=== PATIENT | male | born 1980 | race Caucasian/White ===

== ENCOUNTER 2018-08-20 16:14 | Emergency (ER) | payer SELFPAY ==
[~2018-08-20] VITALS: Ht 182.9 cm; Wt 73.0 kg
[2018-08-20 17:53] LABS: BASOPHILS % 0.4 % (0.0-2.0); EOSINOPHILS % 1.4 % (0.0-5.0); HEMOGLOBIN. 14.5 g/dL (14.0-18.0); LYMPHOCYTES % 27.2 % (20.0-50.0); MEAN CORPUSCULAR HEMOGLOBIN 31.4 pg (28.0-32.0); MEAN CORPUSCULAR VOLUME 95.3 fL (80.0-94.0); MEAN PLATELET VOLUME 7.8 fl (7.4-10.4); MONOCYTES % 8.3 % (2.0-8.0); NEUTROPHILS % 62.7 % (40.0-76.0); PLATELET 233 x1000/uL (130-400); RED BLOOD CELL COUNT 4.62 mill/uL (4.7-6.1)
[2018-08-20 18:00] LABS: CHLORIDE 105 mEq/L (98-107)
[2018-08-20 18:09] LABS: ETHANOL BLOOD 13 mg/dL
[2018-08-20] MEDS ORDERED: NALOXONE HCL 1 MG/ML 2ML VIAL ONE (18:51)
[2018-08-20] MEDS ORDERED: NALOXONE HCL 0.4 MG/ML 1ML VIAL IV ONE ×2 (19:30→20:45)
[2018-08-20] MEDS ORDERED: ENOXAPARIN 40MG/0.4ML SYR SUBCUT ONE (19:30)
[2018-08-20 20:19] LABS: HEPATITIS B SURFACE ANTIGEN NEGATIVE
[2018-08-20 20:47] LABS: HEPATITIS B CORE AB IGM NEGATIVE
[2018-08-20 20:49] LABS: HEPATITIS A AB IGM NEGATIVE (NEGATIVE)
[2018-08-20] MEDS ORDERED: ONDANSETRON HCL 4MG/2ML INJ IV PRN (21:15)
[2018-08-20] MEDS ORDERED: ACETAMINOPHEN 325MG TABLET PO PRN (21:15)
[2018-08-20] MEDS ORDERED: CLONIDINE 0.1MG TABLET PO PRN (21:15)
[2018-08-20] MEDS ORDERED: LORAZEPAM 2MG/ML CPJ IV PRN (21:15)
[2018-08-20] MEDS ORDERED: MAGNESIUM/ALUMINUM HYDROXIDE/SIMETHICONE 30ML UDC PO PRN (21:15)
[2018-08-20] MEDS ORDERED: DILTIAZEM HCL 60MG TABLET PO NR (21:30)
[2018-08-21] MEDS ORDERED: DILTIAZEM HCL 60MG TABLET PO NR (05:00)
[2018-08-21] MEDS ORDERED: SODIUM CHLORIDE 0.9% INJ 3ML FLUSH IVF SCH (06:00)
[2018-08-21 06:34] LABS: CLARITY URINE CLEAR (CLEAR); COLOR URINE YELLOW (YELLOW); KETONES URINE NEGATIVE (NEGATIVE); LEUKOCYTE ESTERASE URINE NEGATIVE (NEGATIVE); NITRITE URINE NEGATIVE (NEGATIVE); OCCULT BLOOD URINE NEGATIVE (NEGATIVE); PH URINE 5.5 (4.5-8.0); PROTEIN URINE 1+ (NEGATIVE); SPECIFIC GRAVITY URINE 1.019 (1.005-1.030); UROBILINOGEN URINE 0.2 E.U./dL (0.2-1.0)
[2018-08-21 06:53] LABS: *AMPHETAMINES SCREEN URINE PRESUMTIVE POSITIVE (NEGATIVE); *BARBITURATES SCREEN URINE NEGATIVE (NEGATIVE); *BENZODIAZEPINES SCREEN URINE NEGATIVE (NEGATIVE); *COCAINE SCREEN URINE PRESUMTIVE POSITIVE (NEGATIVE)
[2018-08-21 06:54] LABS: CANNABINOID URINE SCREEN PRESUMTIVE POSITIVE (NEGATIVE); METHADONE URINE SCREEN NEGATIVE (NEGATIVE); OPIATES URINE SCREEN NEGATIVE (NEGATIVE); PHENCYCLIDINE URINE SCREEN NEGATIVE (NEGATIVE)
[2018-08-21] MEDS ORDERED: ASPIRIN 81MG EC TABLET PO SCH (09:00)
[2018-08-21] MEDS ORDERED: DILTIAZEM HCL 60MG TABLET PO SCH (14:00)
[2018-08-21 15:18] VITALS: BP 117/78
[2018-08-22] MEDS ORDERED: ASPIRIN 81MG EC TABLET PO SCH (09:00)
[2018-08-22 13:10] LABS: HIV SCREEN 4G Non Reactive (Non Reactive)
== END 2018-08-21 16:21 | disposition home or self-care (01) ==
LOC: ER 16:14 → EDBD 16:14 → EDBEDREQTM 08-21 05:34 → EDBEDREQSVC 08-21 05:34 → EDBEDREQDT 08-21 05:34 → EDBEDREQ 08-21 05:37 → CANBEDREQ 08-21 15:12 → ER 08-21 16:21
DX: F11.10 Opioid abuse, uncomplicated (principal)
CPT/HCPCS: 36415; 71045; 80053; 80305; 80307; 81003; 82962; 83735; 84484; 85025; 87389; 93005; 96372; 99285; G0482; J1650; J2310; 86705; 86709; 86803; 87340

== ENCOUNTER 2018-10-19 21:45 | Inpatient (IN) | payer MEDICAID, OTHER ==
[~2018-10-19] VITALS: Ht 175.3 cm; Wt 74.8 kg
[2018-10-19] MEDS ORDERED: KETOROLAC 60MG/2ML VIAL IM ONE (23:00)
[2018-10-19] MEDS ORDERED: SODIUM CHLORIDE 0.9% 1,000 ML IV ONE (23:44)
[2018-10-19] MEDS ORDERED: FENTANYL CITRATE/PF 50MCG/ML 2ML VIAL IV ONE (23:45)
[2018-10-20 00:44] LABS: BASOPHILS % 0.4 % (0.0-2.0); EOSINOPHILS % 0.6 % (0.0-5.0); HEMATOCRIT. 40.2 % (42.0-52.0); HEMOGLOBIN. 13.7 g/dL (14.0-18.0); LYMPHOCYTES % 13.6 % (20.0-50.0); MEAN CORPUSCULAR HEMOGLOBIN 32.5 pg (28.0-32.0); MEAN CORPUSCULAR VOLUME 95.7 fL (80.0-94.0); MEAN PLATELET VOLUME 8.1 fl (7.4-10.4); MONOCYTES % 7.4 % (2.0-8.0); PLATELET 226 x1000/uL (130-400); RED CELL DISTRIBUTION WIDTH 13.3 % (11.6-14.6)
[2018-10-20 00:46] LABS: CHLORIDE 103 mEq/L (98-107)
[2018-10-20 01:05] LABS: PROTHROMBIN TIME 9.6 sec (9.1-11.1)
[2018-10-20 04:00] VITALS: BP 113/72
[2018-10-20 05:00] VITALS: BP 113/77
[2018-10-20] MEDS ORDERED: ONDANSETRON HCL 4MG/2ML INJ IV PRN ×2 (05:30→09:45)
[2018-10-20] MEDS: HYDROMORPHONE HCL/PF 2MG/ML CPJ IV PRN ×3 (06:20→20:42)
[2018-10-20] MEDS: DEXT 5%/0.9% NACL 1,000 ML IV SCH ×3 (06:21→22:52)
[2018-10-20 08:00] VITALS: BP 112/57
[2018-10-20] MEDS: ENOXAPARIN 40MG/0.4ML SYR SUBCUT SCH ×2 (08:34→18:23)
[2018-10-20] MEDS ORDERED: CLONIDINE 0.1MG TABLET PO PRN (09:45)
[2018-10-20] MEDS ORDERED: ENOXAPARIN 40MG/0.4ML SYR SUBCUT SCH (09:45)
[2018-10-20] MEDS ORDERED: LORAZEPAM 2MG/ML CPJ IV PRN (09:45)
[2018-10-20 12:00] VITALS: BP 108/68
[2018-10-20 12:50] LABS: BASOPHILS % 0.4 % (0.0-2.0); EOSINOPHILS % 1.4 % (0.0-5.0); HEMATOCRIT. 39.4 % (42.0-52.0); HEMOGLOBIN. 13.3 g/dL (14.0-18.0); LYMPHOCYTES % 23.9 % (20.0-50.0); MEAN CORPUSCULAR HEMOGLOBIN 32.7 pg (28.0-32.0); MEAN CORPUSCULAR VOLUME 96.8 fL (80.0-94.0); MEAN PLATELET VOLUME 7.9 fl (7.4-10.4); MONOCYTES % 11.8 % (2.0-8.0); NEUTROPHILS % 62.5 % (40.0-76.0); PLATELET 230 x1000/uL (130-400); RED BLOOD CELL COUNT 4.07 mill/uL (4.7-6.1); RED CELL DISTRIBUTION WIDTH 13.6 % (11.6-14.6)
[2018-10-20 12:59] LABS: CHLORIDE 108 mEq/L (98-107)
[2018-10-20 15:30] LABS: CLARITY URINE CLEAR (CLEAR); COLOR URINE YELLOW (YELLOW); KETONES URINE 1+ (NEGATIVE); LEUKOCYTE ESTERASE URINE NEGATIVE (NEGATIVE); NITRITE URINE NEGATIVE (NEGATIVE); OCCULT BLOOD URINE NEGATIVE (NEGATIVE); PROTEIN URINE NEGATIVE (NEGATIVE); SPECIFIC GRAVITY URINE 1.019 (1.005-1.030); UROBILINOGEN URINE 0.2 E.U./dL (0.2-1.0)
[2018-10-20 15:42] LABS: *AMPHETAMINES SCREEN URINE PRESUMTIVE POSITIVE (NEGATIVE); *BARBITURATES SCREEN URINE NEGATIVE (NEGATIVE); *BENZODIAZEPINES SCREEN URINE NEGATIVE (NEGATIVE); *COCAINE SCREEN URINE PRESUMTIVE POSITIVE (NEGATIVE); CANNABINOID URINE SCREEN PRESUMTIVE POSITIVE (NEGATIVE); PHENCYCLIDINE URINE SCREEN NEGATIVE (NEGATIVE)
[2018-10-20 15:43] LABS: METHADONE URINE SCREEN NEGATIVE (NEGATIVE); OPIATES URINE SCREEN PRESUMTIVE POSITIVE (NEGATIVE)
[2018-10-20 16:00] VITALS: BP 102/66
[2018-10-20 20:00] VITALS: BP 127/73
[2018-10-20 21:36] LABS: HEPATITIS B SURFACE ANTIGEN NEGATIVE
[2018-10-20 22:06] LABS: HEPATITIS A AB IGM NEGATIVE (NEGATIVE)
[2018-10-21] VITALS: BP 130/70
[2018-10-21] MEDS: HYDROMORPHONE HCL/PF 2MG/ML CPJ IV PRN ×6 (03:10→21:38)
[2018-10-21 04:00] VITALS: BP 120/65
[2018-10-21 05:47] LABS: BASOPHILS % 0.3 % (0.0-2.0); EOSINOPHILS % 1.4 % (0.0-5.0); HEMATOCRIT. 40.8 % (42.0-52.0); HEMOGLOBIN. 13.7 g/dL (14.0-18.0); LYMPHOCYTES % 16.1 % (20.0-50.0); MEAN CORPUSCULAR HEMOGLOBIN 32.8 pg (28.0-32.0); MEAN CORPUSCULAR VOLUME 97.3 fL (80.0-94.0); MEAN PLATELET VOLUME 7.7 fl (7.4-10.4); MONOCYTES % 9.2 % (2.0-8.0); PLATELET 213 x1000/uL (130-400); RED BLOOD CELL COUNT 4.19 mill/uL (4.7-6.1); RED CELL DISTRIBUTION WIDTH 13.4 % (11.6-14.6)
[2018-10-21 05:51] LABS: CHLORIDE 105 mEq/L (98-107)
[2018-10-21 08:00] VITALS: BP 125/78
[2018-10-21] MEDS: ENOXAPARIN 40MG/0.4ML SYR SUBCUT SCH (08:40)
[2018-10-21] MEDS: DEXT 5%/0.9% NACL 1,000 ML IV SCH ×2 (11:18→21:32)
[2018-10-21 12:00] VITALS: BP 131/78
[2018-10-21 16:00] VITALS: BP 128/78
[2018-10-21 20:47] VITALS: BP 125/78
[2018-10-22] MEDS ORDERED: CEFTRIAXONE 1 G PREMIX 50 ML IV SCH (00:15)
[2018-10-22] MEDS: ACETAMINOPHEN 325MG TABLET PO PRN ×2 (00:23→20:40)
[2018-10-22 00:41] VITALS: BP 119/76
[2018-10-22] MEDS: CEFTRIAXONE 1 G PREMIX 50 ML IV SCH (02:21)
[2018-10-22] MEDS: HYDROMORPHONE HCL/PF 2MG/ML CPJ IV PRN ×3 (02:31→11:08)
[2018-10-22 04:00] VITALS: BP 117/72
[2018-10-22 07:29] LABS: HEMATOCRIT. 41.7 % (42.0-52.0); HEMOGLOBIN. 14.1 g/dL (14.0-18.0); MEAN CORPUSCULAR HEMOGLOBIN 32.9 pg (28.0-32.0); MEAN CORPUSCULAR VOLUME 97.7 fL (80.0-94.0); MEAN PLATELET VOLUME 8.2 fl (7.4-10.4); PLATELET 237 x1000/uL (130-400); RED BLOOD CELL COUNT 4.27 mill/uL (4.7-6.1); RED CELL DISTRIBUTION WIDTH 13.4 % (11.6-14.6)
[2018-10-22] MEDS: DEXT 5%/0.9% NACL 1,000 ML IV SCH ×2 (07:30→20:24)
[2018-10-22] MEDS ORDERED: EPINEPHRINE 1:1000 1 MG/ML AMP ONE (07:46)
[2018-10-22] MEDS ORDERED: BACITRACIN 15GM TUBE TOP ONE (07:47)
[2018-10-22] MEDS ORDERED: BUPIVACAINE HCL/PF 0.25% (2.5MG/ML) 10ML ONE (07:47)
[2018-10-22] MEDS ORDERED: MORPHINE SULFATE 10 MG/ML CPJ ONE (07:47)
[2018-10-22] MEDS ORDERED: KETOROLAC 30MG/ML VIAL ONE (07:47)
[2018-10-22] MEDS ORDERED: ROPIVACAINE HCL 10MG/ML 20 ML VIAL EPI ONE ×4 (07:48→08:45)
[2018-10-22] MEDS ORDERED: BACITRACIN 50,000 UNITS/VIAL ONE (07:48)
[2018-10-22] MEDS ORDERED: VANCOMYCIN HCL 500 MG/VIAL ONE (07:48)
[2018-10-22] MEDS ORDERED: NORMAL SALINE 0.9% 10 ML SYR ONE (07:48)
[2018-10-22] MEDS ORDERED: FENTANYL CITRATE/PF 50MCG/ML 2ML VIAL ONE ×2 (07:58→10:17)
[2018-10-22] MEDS ORDERED: PROPOFOL 200MG/20ML VIAL IV ONE (07:59)
[2018-10-22] MEDS ORDERED: LIDOCAINE HCL 1% 20ML VIAL (Pyxis) INJ ONE (07:59)
[2018-10-22] MEDS ORDERED: CEFAZOLIN SODIUM 1000MG/VIAL ONE (07:59)
[2018-10-22] MEDS ORDERED: MIDAZOLAM HCL 2 MG/2 ML VIAL ONE (07:59)
[2018-10-22] MEDS ORDERED: SODIUM CHLORIDE 0.9% 10ML VIAL ONE (07:59)
[2018-10-22 08:07] LABS: *AMPHETAMINES SCREEN URINE PRESUMTIVE POSITIVE (NEGATIVE); *BARBITURATES SCREEN URINE NEGATIVE (NEGATIVE); CANNABINOID URINE SCREEN PRESUMTIVE POSITIVE (NEGATIVE); OPIATES URINE SCREEN PRESUMTIVE POSITIVE (NEGATIVE); PHENCYCLIDINE URINE SCREEN NEGATIVE (NEGATIVE)
[2018-10-22 08:08] LABS: *BENZODIAZEPINES SCREEN URINE NEGATIVE (NEGATIVE); *COCAINE SCREEN URINE NEGATIVE (NEGATIVE); METHADONE URINE SCREEN NEGATIVE (NEGATIVE)
[2018-10-22] MEDS ORDERED: ROCURONIUM BROMIDE 10MG/ML VIAL 5ML IV ONE (08:10)
[2018-10-22] MEDS ORDERED: TRANEXAMIC ACID 1,000 MG/10 ML IV ONE (08:15)
[2018-10-22] MEDS ORDERED: TRANEXAMIC ACID 1,000 MG in SODIUM CHLORIDE 0.9% 100 ML IV NR (08:30)
[2018-10-22] MEDS ORDERED: METOCLOPRAMIDE HCL 10MG/2ML VIAL ONE (08:51)
[2018-10-22] MEDS ORDERED: ONDANSETRON HCL 4MG/2ML INJ ONE (08:51)
[2018-10-22] MEDS: ENOXAPARIN 40MG/0.4ML SYR SUBCUT SCH (09:00)
[2018-10-22] MEDS ORDERED: SUCCINYLCHOLINE CHLORIDE 200MG/10ML IV ONE (09:19)
[2018-10-22] MEDS ORDERED: KETOROLAC 30MG/ML VIAL IV PRN (10:30)
[2018-10-22 10:55] LABS: CHLORIDE 103 mEq/L (98-107)
[2018-10-22] MEDS ORDERED: HYDROMORPHONE PCA 10MG/50ML IV PRN (11:02)
[2018-10-22] MEDS ORDERED: NALOXONE INJ IV PRN (11:15)
[2018-10-22 11:21] LABS: PHOSPHORUS 3.5 mg/dL (2.5-4.9)
[2018-10-22 11:33] LABS: PLATELET ESTIMATE NORMAL
[2018-10-22 12:00] VITALS: BP 115/69
[2018-10-22] MEDS: CEFAZOLIN 1000MG PREMIX 50 ML IV SCH ×2 (16:48→22:07)
[2018-10-22 16:52] VITALS: BP 115/68
[2018-10-22] MEDS: ASPIRIN 325MG EC TABLET PO SCH (17:28)
[2018-10-22 20:00] VITALS: BP 115/54
[2018-10-22] MEDS: MUPIROCIN 2% OINT 22GM NS SCH (20:21)
[2018-10-23] VITALS: BP 119/71
[2018-10-23] MEDS: CEFTRIAXONE 1 G PREMIX 50 ML IV SCH (01:06)
[2018-10-23 04:00] VITALS: BP 155/98
[2018-10-23 06:09] LABS: BASOPHILS % 0.3 % (0.0-2.0); EOSINOPHILS % 0.2 % (0.0-5.0); HEMOGLOBIN. 13.1 g/dL (14.0-18.0); LYMPHOCYTES % 9.3 % (20.0-50.0); MEAN CORPUSCULAR VOLUME 95.7 fL (80.0-94.0); MEAN PLATELET VOLUME 8.3 fl (7.4-10.4); MONOCYTES % 9.1 % (2.0-8.0); NEUTROPHILS % 81.1 % (40.0-76.0); PLATELET 235 x1000/uL (130-400); RED BLOOD CELL COUNT 3.97 mill/uL (4.7-6.1); RED CELL DISTRIBUTION WIDTH 13.3 % (11.6-14.6)
[2018-10-23] MEDS: CEFAZOLIN 1000MG PREMIX 50 ML IV SCH ×3 (06:21→22:50)
[2018-10-23 06:46] LABS: CHLORIDE 103 mEq/L (98-107)
[2018-10-23 08:00] VITALS: BP 126/85
[2018-10-23] MEDS: ASPIRIN 325MG EC TABLET PO SCH ×2 (09:56→16:37)
[2018-10-23] MEDS: ENOXAPARIN 40MG/0.4ML SYR SUBCUT SCH (09:56)
[2018-10-23] MEDS: MUPIROCIN 2% OINT 22GM NS SCH ×2 (09:57→21:10)
[2018-10-23 12:00] VITALS: BP 128/79
[2018-10-23] MEDS: DEXT 5%/0.9% NACL 1,000 ML IV SCH (13:59)
[2018-10-23 16:00] VITALS: BP 128/82
[2018-10-23 20:00] VITALS: BP 134/82
[2018-10-24] VITALS: BP 125/81
[2018-10-24] MEDS: CEFTRIAXONE 1 G PREMIX 50 ML IV SCH (02:29)
[2018-10-24 04:00] VITALS: BP 125/81
[2018-10-24] MEDS: CEFAZOLIN 1000MG PREMIX 50 ML IV SCH ×2 (06:34→16:44)
[2018-10-24] MEDS: ACETAMINOPHEN 325MG TABLET PO PRN (06:34)
[2018-10-24 08:00] VITALS: BP 116/76
[2018-10-24] MEDS: ENOXAPARIN 40MG/0.4ML SYR SUBCUT SCH (09:01)
[2018-10-24] MEDS: ASPIRIN 325MG EC TABLET PO SCH ×2 (09:02→16:43)
[2018-10-24] MEDS: MUPIROCIN 2% OINT 22GM NS SCH ×2 (09:31→21:59)
[2018-10-24 12:00] VITALS: BP 115/75
[2018-10-24 16:00] VITALS: BP 120/73
[2018-10-24 20:00] VITALS: BP 111/70
[2018-10-25] VITALS: BP 112/74
[2018-10-25] MEDS: DEXT 5%/0.9% NACL 1,000 ML IV SCH ×2 (01:40→14:15)
[2018-10-25] MEDS: CEFTRIAXONE 1 G PREMIX 50 ML IV SCH (03:37)
[2018-10-25 04:00] VITALS: BP 101/56
[2018-10-25 06:29] LABS: BASOPHILS % 0.4 % (0.0-2.0); EOSINOPHILS % 3.9 % (0.0-5.0); HEMATOCRIT. 37.7 % (42.0-52.0); HEMOGLOBIN. 12.8 g/dL (14.0-18.0); LYMPHOCYTES % 19.6 % (20.0-50.0); MEAN CORPUSCULAR HEMOGLOBIN 32.4 pg (28.0-32.0); MEAN CORPUSCULAR VOLUME 95.5 fL (80.0-94.0); MEAN PLATELET VOLUME 7.9 fl (7.4-10.4); MONOCYTES % 10.7 % (2.0-8.0); NEUTROPHILS % 65.4 % (40.0-76.0); PLATELET 290 x1000/uL (130-400); RED BLOOD CELL COUNT 3.95 mill/uL (4.7-6.1); RED CELL DISTRIBUTION WIDTH 13.2 % (11.6-14.6)
[2018-10-25 08:00] VITALS: BP 113/68
[2018-10-25] MEDS: ASPIRIN 325MG EC TABLET PO SCH ×2 (08:44→16:26)
[2018-10-25] MEDS: MUPIROCIN 2% OINT 22GM NS SCH ×2 (08:45→21:06)
[2018-10-25] MEDS: ENOXAPARIN 40MG/0.4ML SYR SUBCUT SCH (08:45)
[2018-10-25 12:00] VITALS: BP 126/78
[2018-10-25 16:00] VITALS: BP 108/62
[2018-10-25] MEDS: ACETAMINOPHEN 325MG TABLET PO PRN (16:26)
[2018-10-25] MEDS ORDERED: HYDROMORPHONE HCL/PF 2MG/ML CPJ IV PRN (18:15)
[2018-10-25] MEDS: HYDROCODONE/ACETAMINOPHEN 5/325MG TABLET PO PRN (18:20)
[2018-10-25 20:00] VITALS: BP 123/76
[2018-10-26] MEDS: CEFTRIAXONE 1 G PREMIX 50 ML IV SCH (02:24)
[2018-10-26 07:00] VITALS: BP 112/63
[2018-10-26] MEDS: ENOXAPARIN 40MG/0.4ML SYR SUBCUT SCH (09:53)
[2018-10-26] MEDS: ASPIRIN 325MG EC TABLET PO SCH ×2 (09:53→17:00)
[2018-10-26] MEDS: MUPIROCIN 2% OINT 22GM NS SCH (09:53)
[2018-10-26] MEDS: HYDROCODONE/ACETAMINOPHEN 5/325MG TABLET PO PRN (10:09)
[2018-10-26 16:00] VITALS: BP 117/71
[2018-10-26 19:40] VITALS: BP 123/69
[2018-11-01 13:06] LABS: BARBITURATE SCREEN Negative ug/mL (Cutoff:0.1); BENZODIAZEPINE SCREEN Negative ng/mL (Cutoff:20); OPIATES SCREEN Negative ng/mL (Cutoff:5); PHENCYCLIDINE SCREEN Negative ng/mL (Cutoff:8)
== END 2018-10-26 20:10 | disposition home or self-care (01) | DRG 301 ==
LOC: ER 21:45 → 6EST 10-20 00:16 → EDBEDREQDT 10-20 00:25 → EDBEDREQ 10-20 00:25 → EDBEDREQTM 10-20 00:25 → ENRESERV 10-20 03:51
PROVIDERS: ADMIT Internal Medicine Nephrology; ATTEND Internal Medicine Nephrology
PROC: 0SRS0JA Replacement of Left Hip Joint, Femoral Surface with Synthetic Substitute, Uncemented, Open Approach (ICD-10-PCS; principal; 2018-10-22)
DX: S72.032A Displaced midcervical fracture of left femur, initial encounter for closed fracture (principal); E44.0 Moderate protein-calorie malnutrition; F14.90 Cocaine use, unspecified, uncomplicated; F12.90 Cannabis use, unspecified, uncomplicated; F17.200 Nicotine dependence, unspecified, uncomplicated; W18.39XA Other fall on same level, initial encounter; Y93.89 Activity, other specified; Y92.89 Other specified places as the place of occurrence of the external cause; Y99.8 Other external cause status; Z68.24 Body mass index [BMI] 24.0-24.9, adult
CPT/HCPCS: 36415; 71045; 72170; 73502; 73552; 80048; 80305; 80307; 83735; 84100; 86703; 86705; 86709; 86803; 86850; 86900; 87340; 88305; 88311; 93005; 96361; 96372; 96374; 97116; 97162; 97166; 97530; 97535; 99285; C1776; J0330; J0690; J0696; J1170; J1650; J1885; J2060; J2250; J2270; J2405; J2704; J2765; J2795; J3010; J3370; J3490; J7030; J7042; J7050

== ENCOUNTER 2018-11-30 12:44 | Emergency (ER) | payer MEDICAID, OTHER ==
[~2018-11-30] VITALS: Ht 175.3 cm; Wt 75.0 kg
[2018-11-30 13:07] VITALS: BP 132/79
== END 2018-11-30 17:31 | disposition left against medical advice (07) ==
LOC: ER 12:44
DX: Z53.21 Procedure and treatment not carried out due to patient leaving prior to being seen by health care provider (principal)

== ENCOUNTER 2018-12-06 17:45 | Emergency (ER) | payer MEDICAID ==
[~2018-12-06] VITALS: Ht 172.7 cm; Wt 74.0 kg
[2018-12-06] MEDS ORDERED: SODIUM CHLORIDE 0.9% 1000ML BAG (SEPSIS BOLUS) IV ONE (22:15)
[2018-12-06 22:27] LABS: BASOPHILS % 0.2 % (0.0-2.0); LYMPHOCYTES % 10.6 % (20.0-50.0); MEAN CORPUSCULAR HEMOGLOBIN 29.7 pg (28.0-32.0); MEAN CORPUSCULAR VOLUME 89.2 fL (80.0-94.0); MEAN PLATELET VOLUME 7.6 fl (7.4-10.4); MONOCYTES % 3.9 % (2.0-8.0); NEUTROPHILS % 85.3 % (40.0-76.0); PLATELET 417 x1000/uL (130-400); RED BLOOD CELL COUNT 4.38 mill/uL (4.7-6.1); RED CELL DISTRIBUTION WIDTH 14.8 % (11.6-14.6)
[2018-12-06 22:33] LABS: CHLORIDE 102 mEq/L (98-107)
[2018-12-06 22:35] LABS: PROTHROMBIN TIME 10.1 sec (9.1-11.1)
[2018-12-06] MEDS ORDERED: LORAZEPAM 2MG/ML CPJ IV ONE (23:15)
[2018-12-07 01:10] VITALS: BP 142/98
== END 2018-12-07 01:13 | disposition home or self-care (01) ==
LOC: ER 17:45 → CANBEDREQ 12-07 01:55
DX: Z48.00 Encounter for change or removal of nonsurgical wound dressing (principal); T43.621A Poisoning by amphetamines, accidental (unintentional), initial encounter; R00.0 Tachycardia, unspecified; I10 Essential (primary) hypertension; Y92.018 Other place in single-family (private) house as the place of occurrence of the external cause
CPT/HCPCS: 36415; 71045; 73502; 80053; 83605; 84145; 85025; 85610; 85730; 87040; 87186; 93005; 96374; 99284; J2060; J7030; Z7610

== ENCOUNTER 2019-03-03 15:51 | Emergency (ER) | payer MEDICAID ==
[~2019-03-03] VITALS: Ht 172.7 cm; Wt 77.0 kg
[2019-03-03 15:56] VITALS: BP 110/67
== END 2019-03-03 17:41 | disposition left against medical advice (07) ==
LOC: ER 15:51
DX: Z53.21 Procedure and treatment not carried out due to patient leaving prior to being seen by health care provider (principal)